=== PATIENT | female | born 1990 ===

== ENCOUNTER 2021-11-06 | Inpatient (IN) | payer OTHER ==
[~2021-11-06] VITALS: Ht 157.5 cm; Wt 61.7 kg
[2021-11-07] MEDS ORDERED: PRENATAL + DHA1 EAC1 PO (08:05)
== END 2021-11-08 14:00 | disposition home or self-care (01) | DRG 805 ==
LOC: LDR 20:52 → OB/GYN 11-07 17:18
PROVIDERS: ADMIT Obstetrics & Gynecology; ATTEND Obstetrics & Gynecology
PROC: 4A1HXCZ Monitoring of Products of Conception, Cardiac Rate, External Approach (ICD-10-PCS; 2021-11-06)
PROC: 3E033VJ Introduction of Other Hormone into Peripheral Vein, Percutaneous Approach (ICD-10-PCS; 2021-11-06)
PROC: 3E0DXGC Introduction of Other Therapeutic Substance into Mouth and Pharynx, External Approach (ICD-10-PCS; 2021-11-06)
PROC: 3E0P7VZ Introduction of Hormone into Female Reproductive, Via Natural or Artificial Opening (ICD-10-PCS; 2021-11-06)
PROC: 10E0XZZ Delivery of Products of Conception, External Approach (ICD-10-PCS; principal; 2021-11-07)
DX: O32.1XX0 Maternal care for breech presentation, not applicable or unspecified (principal); O41.1230 Chorioamnionitis, third trimester, not applicable or unspecified; Z37.1 Single stillbirth; O60.14X0 Preterm labor third trimester with preterm delivery third trimester, not applicable or unspecified; O36.4XX0 Maternal care for intrauterine death, not applicable or unspecified; Z3A.28 28 weeks gestation of pregnancy; Z20.822 Contact with and (suspected) exposure to COVID-19

== ENCOUNTER 2023-02-02 07:49 | Outpatient (CLI) | payer OTHER ==
[~2023-02-02 07:49] MED LIST: PRENATAL + DHA1 EAC1 PO
== END 2023-02-02 08:53 | disposition home or self-care (01) ==
LOC: NST 07:49
PROVIDERS: ATTEND Obstetrics & Gynecology
DX: Z34.83 Encounter for supervision of other normal pregnancy, third trimester (principal)

== ENCOUNTER 2023-02-16 18:49 | Inpatient (IN) | payer OTHER ==
[~2023-02-16] VITALS: Ht 157.5 cm; Wt 4.1 kg
== END 2023-02-20 12:10 | disposition home or self-care (01) | DRG 788 ==
LOC: LDR 18:49 → OB/GYN 02-17 20:29
PROVIDERS: ADMIT Obstetrics & Gynecology; ATTEND Obstetrics & Gynecology
PROC: 4A1HXCZ Monitoring of Products of Conception, Cardiac Rate, External Approach (ICD-10-PCS; 2023-02-16)
PROC: 10D00Z1 Extraction of Products of Conception, Low, Open Approach (ICD-10-PCS; principal; 2023-02-17 18:00)
DX: O33.8 Maternal care for disproportion of other origin (principal); O36.8330 Maternal care for abnormalities of the fetal heart rate or rhythm, third trimester, not applicable or unspecified; Z3A.39 39 weeks gestation of pregnancy; Z37.0 Single live birth; Z20.822 Contact with and (suspected) exposure to COVID-19